=== PATIENT | male | born 1985 | race Caucasian/White ===

== ENCOUNTER 2016-10-10 08:40 | Emergency (ER) | payer OTHER ==
[2016-10-10 08:45] VITALS: BP 129/69; PULSE 55; TEMP 97.7; BMI 20.9
[2016-10-10] MEDS ORDERED: IBUPROFEN 600 MG TABLET (FP) PO ONE ×2 (09:22→09:24)
--- NOTE | 2016-10-10 09:53 | PDOC ---
History of Present Illness - General Chief Complaint: Back Pain Stated Complaint: BACK PAIN Time Seen by Provider: 10/10/16 08:48 History Source: Patient Exam Limitations: No Limitations, Language Barrier (Ronald full time staff interpreter [id number]) - History of Present Illness Initial Comments: 10/10/16 09:49 CHIEF COMPLAINT: Upper back pain HISTORY OF PRESENT ILLNESS: 30-year-old male, patient reports yesterday was lifting heavy plants started to have pain and upper back between the shoulder blades, went home and arms felt weak did not attempt to take any medication reports that his rubbed an appointment on his upper back which helped him feel better to the ER for assessment, Nonradiating pain, no neurosensory deficits, no bowel or bladder difficulty incontinence or urinary retention, no saddle anesthesia, no footdrop. No history of IVDU or history of cancer. Denies any respiratory difficulty no shortness of breath. REVIEW OF SYSTEMS: GENERAL: Afebrile, denies any weakness RESPIRATORY: No cough, wheezing, or hemoptysis. CARDIAC: No chest pain or shortness of breath MUSCULOSKELETAL: Pain to mid upper thoracic. No point tenderness. Pain to bilateral shoulders. SKIN : No erythema, no bruising, no deformity. GI/: Denies any abdominal pain, no urinary difficulty, incontinence or urinary retention. RECTAL: Denies any difficulty this A.m. NEUROLOGICAL: Denies any numbness or tingling. No neurosensory deficits. PHYSICAL EXAM: GENERAL: The patient is awake, alert, and fully oriented, in no acute distress. RESPIRATORY: Lungs clear bilaterally, no rhonchi wheezes or crackles CARDIAC: S1-S2 audible, no murmur rub or gallop MUSCULOSKELETAL: Pain to mid thoracic on palpation, nonradiating, no tingling or sensory deficit. Less than 2 second cap refill, +4 popliteal and pedal pulses. No step off. GI/: Abdomen soft, nontender, nondistended. No rebound tenderness. No masses palpable. MUSCULOSKELETAL: Normal reflexive and no deficits to sensation or strength. RECTAL: Deferred patient with no neurological findings SKIN: Warm, Dry, normal turgor, no erythema, no edema no bruising. 10/10/16 09:52 Past History - Past Medical History Allergies/Adverse Reactions: Allergies Allergy/AdvReac Type Severity Reaction Status Date / Time No Known Allergies Allergy Verified 10/10/16 08:45 Home Medications: Ambulatory Orders Naproxen [Naprosyn -] 500 mg PO BID #14 tablet 10/10/16 Other medical history: PATIENT DENIES MEDICAL HISTORY - Psycho/Social/Smoking Cessation Hx Suicidal Ideation: No Smoking History: Never smoked Hx Alcohol Use: No Drug/Substance Use Hx: No Trauma Specific PMHX - Complaint Specific PMHX Arthritis: No Back Injury: No Neck Injury: No Hx Sacro Iliac Joint Dysfunction: No *Physical Exam - Vital Signs Last Vital Signs Temp Pulse Resp BP Pulse Ox 97.7 F 55 L 16 129/69 100 10/10/16 08:43 10/10/16 08:43 10/10/16 08:43 10/10/16 08:43 10/10/16 08:43 ED Treatment Course - RADIOLOGY Radiology Studies Ordered: Category Date Time Status SPINE-THORACIC [RAD] Stat Radiology 10/10/16 09:22 Taken - Medications Given in the ED: ED Medications Discontinued Medications Generic Name Dose Route Start Last Admin Trade Name Angelq PRN Reason Stop Dose Admin Ibuprofen 600 mg 10/10/16 09:22 10/10/16 09:25 Motrin - PO 10/10/16 09:23 600 mg ONCE ONE Administration Medical Decision Making - Medical Decision Making 10/10/16 09:52 A/P: Patient with upper thoracic pain, pain to bilateral shoulders, most likely musculoskeletal in nature however patient with minor spinal point tenderness to mid thoracic area will send for x-rays, Motrin 600 by mouth times one refused Toradol. Patient denies any shortness of breath, no numbness or tingling, no neurosensory deficits. 10/10/16 13:15 X-ray is negative for acute fracture or injury, minor levoscoliosis patient states he feels better after the Motrin will DC patient home on Naprosyn follow- up with PMD in no heavy lifting. I discussed the physical exam findings, ancillary test results and final diagnoses with the patient. I answered all of the patient's questions. The patient was satisfied with the care received and felt comfortable with the discharge plan and treatment plan. The patient will call to arrange follow-up and will return to the Emergency Department with any new, persistent or worsening symptoms. *DC/Admit/Observation/Transfer Diagnosis at time of Disposition: Thoracic back pain Qualifiers: Chronicity: acute Back pain laterality: bilateral Qualified Code(s): M54.6 - Pain in thoracic spine - Discharge Dispostion Disposition: HOME Condition at time of disposition: Good Admit: No - Prescriptions Prescriptions: Naproxen [Naprosyn -] 500 mg PO BID #14 tablet - Referrals Referrals: Rubens Calvert MD [Primary Care Provider] - - Patient Instructions Additional Instructions: No heavy lifting. Medication as prescribed for pain Return to the ER if any increased pain, numbness tinging or other concerns. - Post Discharge Activity Work/School Note: Back to Work
== END 2016-10-10 11:06 | disposition home or self-care (01) ==
LOC: JERFT 08:40
DX: M54.6 Pain in thoracic spine (principal)
CPT/HCPCS: 72070-TC; 99281-25

== ENCOUNTER 2017-01-27 12:15 | Emergency (ER) | payer OTHER ==
[2017-01-27 12:25] VITALS: BP 125/59; PULSE 75; TEMP 98.2; BMI 20.6
[2017-01-27] MEDS ORDERED: IBUPROFEN 400 MG TABLET (FP) PO ONE ×2 (13:26→13:32)
--- NOTE | 2017-01-27 13:31 | PDOC ---
History of Present Illness - General Chief Complaint: Pain Stated Complaint: LT HAND PAIN Time Seen by Provider: 01/27/17 13:08 History Source: Patient - History of Present Illness Occurred: reports: yesterday Severity: reports: severe Upper Extremity Pain Location: left: thumb Method of Injury: reports: other Past History - Past Medical History Allergies/Adverse Reactions: Allergies Allergy/AdvReac Type Severity Reaction Status Date / Time No Known Allergies Allergy Verified 01/27/17 12:22 Home Medications: Ambulatory Orders NK [No Known Home Medication] 01/27/17 Other medical history: NONE - Suicide/Smoking/Psychosocial Hx Smoking History: Never smoked Information on smoking cessation initiated: No Hx Alcohol Use: No Drug/Substance Use Hx: No Review of Systems - Review of Systems Musculoskeletal: Yes: Joint Pain, Joint Swelling *Physical Exam - Vital Signs Last Vital Signs Temp Pulse Resp BP Pulse Ox 98.2 F 75 18 125/59 100 01/27/17 12:23 01/27/17 12:23 01/27/17 12:23 01/27/17 12:23 01/27/17 12:23 - Physical Exam General Appearance: Yes: Appropriately Dressed. No: Apparent Distress HEENT: positive: Normal Voice Neck: positive: Supple Respiratory/Chest: negative: Respiratory Distress Extremity: positive: Other (significant swelling/fullness to thenar eminence w/ LROM of thumb, c/f possible dislocation, NVI) Integumentary: positive: Dry, Warm Neurologic: positive: Fully Oriented, Alert, Normal Mood/Affect ED Treatment Course - RADIOLOGY Radiology Studies Ordered: Category Date Time Status HAND- LEFT [RAD] Stat Radiology 01/27/17 13:26 Ordered Medical Decision Making - Medical Decision Making 01/27/17 13:29 31-year-old male, no significant history, presents with left thumb pain and swelling status post injury. Patient states yesterday while at work and plugging a cable into a battery, that thumb "snapped back". Has been having pain since See exam ?thumb dislocation -pain control -XR 01/27/17 13:44 XR neg for fracture or dislocation. Will discharge with otc pain meds as needed and instructions to purchase thumb splint for comfort. Hand f/u given 01/27/17 13:58 *DC/Admit/Observation/Transfer Diagnosis at time of Disposition: Thumb sprain Qualifiers: Encounter type: initial encounter Sprain of finger site: interphalangeal joint Laterality: left Qualified Code(s): S63.622A - Sprain of interphalangeal joint of left thumb, initial encounter - Discharge Dispostion Disposition: HOME Condition at time of disposition: Good - Referrals Referrals: Rubens Calvert MD [Primary Care Provider] - Mann Marquez MD [Staff Physician] - - Patient Instructions Printed Discharge Instructions: Finger Sprain Additional Instructions: Your xray was negative for fracture or dislocation. Use thumb splint for comfort and take motrin for pain as needed Follow up with Dr Marquez of orthopedics in 1-2 weeks - Post Discharge Activity Work/School Note: Back to Work
== END 2017-01-27 14:04 | disposition home or self-care (01) ==
LOC: JERFT 12:15
DX: S63.622A Sprain of interphalangeal joint of left thumb, initial encounter (principal); X50.1XXA Overexertion from prolonged static or awkward postures, initial encounter; Y93.89 Activity, other specified; Y92.69 Other specified industrial and construction area as the place of occurrence of the external cause; Y99.0 Civilian activity done for income or pay
CPT/HCPCS: 73130-TC-LT; 99281-25

== ENCOUNTER 2018-05-02 18:00 | Emergency (ER) | payer OTHER ==
[2018-05-02 18:06] VITALS: BP 132/75; PULSE 112; TEMP 99.7; BMI 22.3
--- NOTE | 2018-05-02 18:43 | PDOC ---
History of Present Illness - General Chief Complaint: Sore Throat Stated Complaint: PAIN,ALLERGIES Time Seen by Provider: 05/02/18 18:39 - History of Present Illness Initial Comments: 05/02/18 18:42 32-year-old male without comorbidities presents for evaluation of fever and body aches 2 days. He is on a course of amoxicillin for throat infection Past History - Past Medical History Allergies/Adverse Reactions: Allergies Allergy/AdvReac Type Severity Reaction Status Date / Time No Known Allergies Allergy Verified 05/02/18 18:02 Home Medications: Ambulatory Orders Oseltamivir Phosphate [Tamiflu -] 75 mg PO BID #10 capsule 05/02/18 COPD: No - Suicide/Smoking/Psychosocial Hx Smoking History: Never smoked Hx Alcohol Use: No Drug/Substance Use Hx: No Review of Systems - Review of Systems Constitutional: Yes: Chills, Fever, Malaise, Night Sweats, Weakness HEENTM: Yes: Nose Congestion Musculoskeletal: Yes: Muscle Pain *Physical Exam - Vital Signs Last Vital Signs Temp Pulse Resp BP Pulse Ox 99.7 F H 112 H 18 132/75 05/02/18 18:02 05/02/18 18:02 05/02/18 18:02 05/02/18 18:02 - Physical Exam Comments: 05/02/18 18:43 HEAD: NC/AT EYES: Conjuntiva clear Ears: Canals and TM's normal NOSE: No d/c THROAT: Moist mucous membrances, oral pharanx clear, uvula midline NECK: Supple without adenopathy CARDIAC: S1 S2 LUNGS: CTA Full and Equal breath sounds ABDOMEN: Soft NT ND MS: Full ROM in all joints without edema NEUROLOGIC: No gross sensory or motor deficits, NVID SKIN: Normal color and temperature no lesions or rashes Moderate Sedation - Procedure Monitoring Vital Signs: Procedure Monitoring Vital Signs Temperature 99.7 F H 05/02/18 18:02 Pulse Rate 112 H 05/02/18 18:02 Respiratory Rate 18 05/02/18 18:02 Blood Pressure 132/75 05/02/18 18:02 O2 Sat by Pulse Oximetry (%) *DC/Admit/Observation/Transfer Diagnosis at time of Disposition: Influenza - Discharge Dispostion Disposition: HOME Condition at time of disposition: Stable Decision to Admit order: No - Prescriptions Prescriptions: Oseltamivir Phosphate [Tamiflu -] 75 mg PO BID #10 capsule - Referrals Referrals: Rubens Calvert MD [Primary Care Provider] - - Patient Instructions Printed Discharge Instructions: Influenza, DI for Influenza -- Adult Additional Instructions: Please take Tamiflu as directed and Tylenol and Motrin for pain and fever as directed. Return to the emergency room should symptoms worsen or go unresolved and follow up with her primary care physician in 2-3 days for further evaluation and treatment options. - Post Discharge Activity
== END 2018-05-02 19:29 | disposition home or self-care (01) ==
LOC: JERFT 18:00
DX: J10.1 Influenza due to other identified influenza virus with other respiratory manifestations (principal)
CPT/HCPCS: 87804; 99281-25

== ENCOUNTER 2018-08-08 13:05 | Emergency (ER) | payer OTHER ==
[2018-08-08 13:11] VITALS: BP 127/74; PULSE 56; TEMP 97.6; BMI 22.3
[2018-08-08 13:48] LABS: PH,URINE 7.5 (5.0-8.0); URINE APPEARANCE CLEAR; URINE BILIRUBIN NEGATIVE (NEGATIVE); URINE COLOR YELLOW; URINE GLUCOSE (UA) NEGATIVE (NEGATIVE); URINE KETONE NEGATIVE (NEGATIVE); URINE LEUK ESTERASE NEGATIVE (NEGATIVE); URINE NITRITE NEGATIVE (NEGATIVE); URINE PROTEIN NEGATIVE (NEGATIVE); URINE UROBILINOGEN 0.2 mg/dL (0.2-1.0)
--- NOTE | 2018-08-08 15:37 | PDOC ---
History of Present Illness - General Chief Complaint: Urinary Problem Stated Complaint: URINE PROBLEM Time Seen by Provider: 08/08/18 13:33 History Source: Patient Exam Limitations: No Limitations Past History - Travel Traveled outside of the country in the last 30 days: No Close contact w/someone who was outside of country & ill: No - Past Medical History Allergies/Adverse Reactions: Allergies Allergy/AdvReac Type Severity Reaction Status Date / Time No Known Allergies Allergy Verified 08/08/18 13:11 Home Medications: Ambulatory Orders Phenazopyridine HCl [Pyridium -] 100 mg PO TID #9 tablet 08/08/18 COPD: No - Suicide/Smoking/Psychosocial Hx Smoking History: Never smoked Hx Alcohol Use: No Drug/Substance Use Hx: No Review of Systems - Review of Systems Able to Perform ROS?: Yes Comments:: 08/09/18 15:36 CONSTITUTIONAL: Absent: fever, chills, diaphoresis, generalized weakness, malaise, loss of appetite GASTROINTESTINAL: Absent: abdominal pain, abdominal distension, nausea, vomiting, diarrhea, constipation, melena, hematochezia GENITOURINARY: Present: frequency Absent: dysuria, urgency, hesitancy, hematuria, flank pain, genital pain MUSCULOSKELETAL: Absent: myalgia, arthralgia, joint swelling SKIN: Absent: rash, itching, pallor HEMATOLOGIC/IMMUNOLOGIC: Absent: easy bleeding, easy bruising, lymphadenopathy, frequent infections ENDOCRINE: Absent: unexplained weight gain, unexplained weight loss, heat intolerance, cold intolerance NEUROLOGIC: Absent: headache, focal weakness or paresthesias, dizziness, unsteady gait, seizure, mental status changes, bladder or bowel incontinence PSYCHIATRIC: Absent: anxiety, depression, suicidal or homicidal ideation, hallucinations. *Physical Exam - Vital Signs Last Vital Signs Temp Pulse Resp BP Pulse Ox 97.6 F 56 L 18 127/74 99 08/08/18 13:07 08/08/18 13:07 08/08/18 13:07 08/08/18 13:07 08/08/18 13:07 - Physical Exam Comments: 08/08/18 15:38 GENERAL: Well developed, well nourished. Awake and alert. No acute distress. NECK: Supple. Full ROM. No JVD. Carotid pulses 2+ and symmetric, without bruits. No thyromegaly. No lymphadenopathy. ABDOMINAL: Discomfort to the suprapubic area. Soft. Non-tender. Non-distended. No rebound or guarding. No organomegaly. Normoactive bowel sounds. MUSCULOSKELETAL Normal range of motion at all joints. No bony deformities or tenderness. No CVA tenderness. EXTREMITIES: No cyanosis. No clubbing. No edema. No calf tenderness. SKIN: Warm and dry. Normal capillary refill. No rashes. No jaundice. NEUROLOGICAL: Alert, awake, appropriate. Cranial nerves 2-12 intact. No deficits to light touch and temperature in face, upper extremities and lower extremities. No motor deficits in the in face, upper extremities and lower extremities. Normoreflexic in the upper and lower extremities. Normal speech. Toes are down- going bilaterally. Gait is normal without ataxia. PSYCHIATRIC: Cooperative. Good eye contact. Appropriate mood and affect. ED Treatment Course - ADDITIONAL ORDERS Additional order review: Laboratory Results 08/08/18 13:40 Urine Color Yellow Urine Appearance Clear Urine pH 7.5 Ur Specific [place] 1.004 L Urine Protein Negative Urine Glucose (UA) Negative Urine Ketones Negative Urine Blood Negative Urine Nitrite Negative Urine Bilirubin Negative Urine Urobilinogen 0.2 Ur Leukocyte Esterase Negative Medical Decision Making - Medical Decision Making 08/08/18 15:41 the patient is a 32-year-old male with no past medical history who presents to the emergency department today for urinary frequency. He states that he has been getting up the last couple of nights every 2 hours to urinate. Denies nausea, vomiting and abdominal pain. He is sexually active with his . Denies testicular pain and penile drainage. A/P: Urinary frequency. Discomfort to the suprapubic region on exam. Patient denies penile drainage. Urinalysis and culture ordered. No evidence of urinary tract infection at this time. Possible cystitis. Pyridium sent to patient's pharmacy. Patient instructed to follow up with his primary care doctor. Explained that he may need a prostate exam as well. Discharge home I discussed the physical exam findings, ancillary test results and final diagnoses with the patient. I answered all of the patient's questions. The patient was satisfied with the care received and felt comfortable with the discharge plan and treatment plan. The Patient agrees to follow up with the primary care physician/specialist within 24-72 hours. Return precautions were given. *DC/Admit/Observation/Transfer Diagnosis at time of Disposition: Urinary frequency - Discharge Dispostion Disposition: HOME Condition at time of disposition: Stable Decision to Admit order: No - Prescriptions Prescriptions: Phenazopyridine HCl [Pyridium -] 100 mg PO TID #9 tablet - Referrals Referrals: Danie Araiza PA [Primary Care Provider] - - Patient Instructions Printed Discharge Instructions: DI for Dysuria -- Adult Additional Instructions: Your urine test was negative for infection Drink plenty of fluids You may take the pyridium with meals three times a day Follow up with your primary care doctor this week Return to the ED for any new or worsening symptoms Lee anlisis de orina fue negativo para la infeccin Beber mucho lquido Puede edwar el piridio con las comidas maribeth veces al da. Yaa un seguimiento con lee mdico de atencin primaria esta semana. Regrese a la sara de emergencias para cualquier sntoma nuevo o que empeore. - Post Discharge Activity Forms/Work/School Notes: Back to Work
== END 2018-08-08 15:49 | disposition home or self-care (01) ==
LOC: JERFT 13:05
DX: R35.0 Frequency of micturition (principal)
CPT/HCPCS: 36415; 81003; 87086; 87491; 87591; 99281-25

== ENCOUNTER 2018-08-09 19:31 | Emergency (ER) | payer OTHER ==
--- NOTE | 2018-08-09 19:51 | PDOC ---
Rapid Medical Evaluation Time Seen by Provider: 08/09/18 19:47 Medical Evaluation: Allergies Allergy/AdvReac Type Severity Reaction Status Date / Time No Known Allergies Allergy Verified 08/08/18 13:11 08/09/18 19:50 I have performed a brief in-person evaluation of this patient The patient present with a chief complaint of: nausea after taking pyridium. Denies pain or burning with urination Pertinent physical exam findings: NAD even and unlabored breathing I have ordered the following: The patient will proceed to the ED for further evaluation. Discharge Disposition - Diagnosis Nausea - Referrals - Patient Instructions - Post Discharge Activity
[2018-08-09 19:53] VITALS: BP 147/83; PULSE 86; TEMP 97.9; BMI 23.3
--- NOTE | 2018-08-09 20:58 | PDOC ---
History of Present Illness - General Chief Complaint: Nausea Stated Complaint: FREQUENCY URINATION Time Seen by Provider: 08/09/18 19:47 - History of Present Illness Initial Comments: 08/09/18 20:56 32-year-old male without comorbidities seen a few days ago for dysuria he is taking Pyridium which helped his pain he still has frequency now intermittent dizziness after Pyridium Past History - Past Medical History Allergies/Adverse Reactions: Allergies Allergy/AdvReac Type Severity Reaction Status Date / Time No Known Allergies Allergy Verified 08/08/18 13:11 Home Medications: Ambulatory Orders Phenazopyridine HCl [Pyridium -] 100 mg PO TID #9 tablet 08/08/18 COPD: No - Suicide/Smoking/Psychosocial Hx Smoking History: Unknown if ever smoked Hx Alcohol Use: No Drug/Substance Use Hx: No Review of Systems - Review of Systems : Yes: Frequency Neurological: Yes: Dizziness *Physical Exam - Vital Signs Last Vital Signs Temp Pulse Resp BP Pulse Ox 97.9 F 86 20 147/83 100 08/09/18 19:47 08/09/18 19:47 08/09/18 19:47 08/09/18 19:47 08/09/18 19:47 - Physical Exam Comments: 08/09/18 20:57 HEAD: NC/AT EYES: Conjuntiva clear NOSE: No d/c LUNGS: No distress ABDOMEN: Soft NT ND no CVAT MS: Full ROM in all joints without edema NEUROLOGIC: No gross sensory or motor deficits, NVID SKIN: Normal color and temperature no lesions or rashes Medical Decision Making - Medical Decision Making 08/09/18 20:57 I have advised the patient to discontinue the Pyridium if it causes dizziness. He will follow up with urology within the next 1-2 days for further evaluation of urinary frequency. *DC/Admit/Observation/Transfer Diagnosis at time of Disposition: Nausea, Urinary frequency - Discharge Dispostion Disposition: HOME Condition at time of disposition: Stable Decision to Admit order: No - Referrals Referrals: Danie Araiza PA [Primary Care Provider] - Alberto Etienne MD [Staff Physician] - - Patient Instructions Additional Instructions: Discontinue the use of the Pyridium if it makes her dizzy. Return to the emergency room for worsening symptoms. Please follow-up with urology in 1-2 days for further evaluation and treatment options. - Post Discharge Activity
== END 2018-08-09 21:10 | disposition home or self-care (01) ==
LOC: JERFT 19:31
DX: R35.0 Frequency of micturition (principal); R11.0 Nausea
CPT/HCPCS: 99281-25

== ENCOUNTER 2018-10-27 18:51 | Emergency (ER) | payer OTHER ==
--- NOTE | 2018-10-27 18:58 | PDOC ---
Rapid Medical Evaluation Chief Complaint: Sore Throat Time Seen by Provider: 10/27/18 18:54 Medical Evaluation: Allergies Allergy/AdvReac Type Severity Reaction Status Date / Time No Known Allergies Allergy Verified 08/08/18 13:11 10/27/18 18:55 I have performed a brief in-person evaluation of this patient. The patient presents with a chief complaint of: sorethroat with nasal drainage x 3 days. worse at night. No other family ill Pertinent physical exam findings: No fever. throat no redness / exudate I have ordered the following: nothing The patient will proceed to the ED for further evaluation. Discharge Disposition - Diagnosis URI (upper respiratory infection) - Referrals - Patient Instructions - Post Discharge Activity
[2018-10-27 19:00] VITALS: BP 115/63; PULSE 82; TEMP 98.5; BMI 24.1
--- NOTE | 2018-10-27 19:54 | PDOC ---
History of Present Illness - General Chief Complaint: Sore Throat Stated Complaint: SORE THROAT Time Seen by Provider: 10/27/18 18:54 - History of Present Illness Initial Comments: 10/27/18 19:53 32-year-old male without comorbidities presents for evaluation of abdominal pain and sore throat 3 days no systemic symptoms. Past History - Past Medical History Allergies/Adverse Reactions: Allergies Allergy/AdvReac Type Severity Reaction Status Date / Time No Known Allergies Allergy Verified 08/08/18 13:11 Home Medications: Ambulatory Orders Phenazopyridine HCl [Pyridium -] 100 mg PO TID #9 tablet 08/08/18 COPD: No - Suicide/Smoking/Psychosocial Hx Smoking History: Never smoked Have you smoked in the past 12 months: No Information on smoking cessation initiated: No Hx Alcohol Use: No Drug/Substance Use Hx: No Review of Systems - Review of Systems Constitutional: No: Fever *Physical Exam - Vital Signs Last Vital Signs Temp Pulse Resp BP Pulse Ox 98.5 F 82 18 115/63 99 10/27/18 18:56 10/27/18 18:56 10/27/18 18:56 10/27/18 18:56 10/27/18 18:56 - Physical Exam Comments: 10/27/18 19:53 HEAD: NC/AT EYES: Conjuntiva clear Ears: Canals and TM's normal NOSE: No d/c THROAT: Moist mucous membrances, oral pharanx clear, uvula midline NECK: Supple without adenopathy CARDIAC: S1 S2 LUNGS: CTA Full and Equal breath sounds ABDOMEN: Left-sided abdominal tenderness without rebound or guarding MS: Full ROM in all joints without edema NEUROLOGIC: No gross sensory or motor deficits, NVID SKIN: Normal color and temperature no lesions or rashes Medical Decision Making - Medical Decision Making 10/27/18 19:53 belly labs and CAT scan ordered I will move patient over to main emergency room. *DC/Admit/Observation/Transfer Diagnosis at time of Disposition: Abdominal pain Diagnosis at time of Disposition: (Ruled Out): URI (upper respiratory infection) - Discharge Dispostion Condition at time of disposition: Stable - Referrals Referrals: Quang Ramirez MD [Primary Care Provider] - - Patient Instructions - Post Discharge Activity
[2018-10-27 20:21] LABS: BASO % 0.9 % (0-2.0); EOS % 1.3 % (0-4.5); HEMATOCRIT 40.7 % (35.4-49); HEMOGLOBIN 14.1 GM/dL (11.7-16.9); LYMPH % 25.1 % (8-40); MCH 31.8 pg (25.7-33.7); MCHC 34.6 g/dl (32.0-35.9); MEAN PLT VOLUME 8.9 fl (7.5-11.1); MONO % 12.3 % (3.8-10.2); NEUT % 60.4 % (42.8-82.8); PLATELET COUNT 249 K/MM3 (134-434); RBC 4.42 M/mm3 (4.00-5.60); RDW 11.7 % (11.9-15.9)
--- NOTE | 2018-10-27 20:44 | PDOC ---
*Physical Exam - Vital Signs Last Vital Signs Temp Pulse Resp BP Pulse Ox 98.5 F 82 18 115/63 99 10/27/18 18:56 10/27/18 18:56 10/27/18 18:56 10/27/18 18:56 10/27/18 18:56 - Physical Exam General Appearance: Yes: Nourished, Appropriately Dressed. No: Apparent Distress HEENT: positive: SHANE, Normal ENT Inspection, Normal Voice Neck: positive: Supple Respiratory/Chest: positive: Lungs Clear, Normal Breath Sounds. negative: Chest Tender, Respiratory Distress, Accessory Muscle Use Cardiovascular: positive: Regular Rhythm, Regular Rate. negative: Murmur Gastrointestinal/Abdominal: positive: Normal Bowel Sounds, Tender (mild TTP to epigastric and suprapbic region), Flat, Soft. negative: Organomegaly, Distended , Guarding, Rebound, Hernia, Hepatomegaly, Spleenomegaly Male Genitalia: positive: normal genitalia. negative: testicular tenderness, testicular mass, CVAT Musculoskeletal: positive: Normal Inspection Extremity: positive: Normal Inspection Integumentary: positive: Normal Color Neurologic: positive: Fully Oriented, Alert, Normal Mood/Affect, Normal Response ED Treatment Course - LABORATORY CBC & Chemistry Diagram: 10/27/18 19:58 10/27/18 19:58 - ADDITIONAL ORDERS Additional order review: 10/27/18 19:58 RBC 4.42 MCV 92.0 MCHC 34.6 RDW 11.7 L MPV 8.9 Neutrophils % 60.4 Lymphocytes % 25.1 Monocytes % 12.3 H Eosinophils % 1.3 Basophils % 0.9 Medical Decision Making - Medical Decision Making 10/27/18 20:42 I assumed care of this 32-year-old male with no significant past medical history present with complaint of sore throat and epigastric abdominal pain for 3 days. Patient denies nausea, vomiting, diarrhea or constipation. Patient denies fever or chills. Patient denies any other symptoms. Patient seen in fast track as signed out to me for follow-up care of abdominal pain. CBC, CMP and lipase lab ordered. Abdominal CT ordered from fast-track. Rapid strep ordered to rule out strep pharyngitis. Treat based on lab and imaging results 10/27/18 21:17 rapid strep negative. CBC, CMP and lipase labs unremarkable. Patient pending abd /pelvis CT 06/19/19 23:[address] w/o acute findings. Patient symptoms likely viral pharyngitis ith acid reflux as pt report burning in epigastric. Patient will be discharge on protonix and maalox for GERD with medrol-fabian with help with pharyngitis with PCP f/u. Patient stable for discharge *DC/Admit/Observation/Transfer Diagnosis at time of Disposition: Abdominal pain Qualifiers: Abdominal location: epigastric Qualified Code(s): R10.13 - Epigastric pain Pharyngitis Qualifiers: Pharyngitis/tonsillitis etiology: unspecified etiology Qualified Code(s): J02.9 - Acute pharyngitis, unspecified - Discharge Dispostion Disposition: HOME Condition at time of disposition: Stable Decision to Admit order: No - Prescriptions Prescriptions: Mag Hydrox/Aluminum Hyd/Simeth [Maalox Advanced Suspension] 30 ml PO Q8H PRN # 160 ml PRN Reason: abdominal discomfort Methylprednisolone [Medrol Dose Fabian] 4 mg PO ASDIR #21 tablet Pantoprazole Sodium [Protonix] 40 mg PO DAILY #10 tablet.dr - Referrals Referrals: Bijan Junior MD [Staff Physician] - - Patient Instructions Printed Discharge Instructions: DI for Gastroesophageal Reflux Disease (GERD), DI for Gastritis Additional Instructions: Your labs and CAT scan is normal. Your strep is negative. Take medications as prescribed. Increase fluid intake. Follow-up with referred GI if no improvement in 3 days - Post Discharge Activity
[2018-10-27 20:53] LABS: ALBUMIN 4.2 g/dl (3.4-5.0); BILIRUBIN,TOTAL 0.4 mg/dL (0.2-1); BLOOD UREA NITROGEN 11.9 mg/dL (7-18); CALCIUM 9.3 mg/dL (8.5-10.1); CREATININE 0.9 mg/dL (0.55-1.3); POTASSIUM 4.5 mmol/L (3.5-5.1); TOT PROT 7.5 g/dl (6.4-8.2)
[2018-10-27] MEDS ORDERED: MAG HYDROX/AL HYDROX/SIMETH 30 ML UNIT-DOSE CUP PO ONE (21:18)
[2018-10-27] MEDS ORDERED: MAG HYDROX/AL HYDROX/SIMETH 30 ML UNIT-DOSE CUP ONE (21:35)
== END 2018-10-27 23:02 | disposition home or self-care (01) ==
LOC: JERFT 18:51 → JER 18:51
DX: J02.9 Acute pharyngitis, unspecified (principal); R10.84 Generalized abdominal pain
CPT/HCPCS: 36415; 74177-TC; 80053; 83690; 85025; 87070; 87880; 99282-25

== ENCOUNTER 2018-11-19 19:13 | Emergency (ER) | payer OTHER ==
[2018-11-19 19:21] VITALS: BP 123/77; PULSE 68; TEMP 98.3; BMI 60.5
[2018-11-19] MEDS ORDERED: FAMOTIDINE 20 MG/50 ML IVPB 20 MG/50 ML MG IVPB ONE ×2 (21:09→22:27)
[2018-11-19] MEDS ORDERED: SODIUM CHLORIDE 1,000 ML IV STA (21:09)
[2018-11-19] MEDS: MAG HYDROX/AL HYDROX/SIMETH 30 ML UNIT-DOSE CUP PO ONE ×2 (22:00→22:46)
[2018-11-19 22:18] LABS: BASO % 1.3 % (0-2.0); HEMATOCRIT 40.4 % (35.4-49); HEMOGLOBIN 13.7 GM/dL (11.7-16.9); LYMPH % 46.4 % (8-40); MCH 31.2 pg (25.7-33.7); MEAN CELL VOLUME 91.8 fl (80-96); MEAN PLT VOLUME 9.9 fl (7.5-11.1); NEUT % 41.3 % (42.8-82.8); PLATELET COUNT 178 K/MM3 (134-434); RBC 4.41 M/mm3 (4.00-5.60); RDW 11.9 % (11.9-15.9); WHITE BLOOD COUNT 5.5 K/mm3 (4.0-10.0)
--- NOTE | 2018-11-19 22:24 | PDOC ---
History of Present Illness - General Chief Complaint: Pain Stated Complaint: ABD PAIN/DIARRHEA Time Seen by Provider: 11/19/18 20:44 History Source: Patient Exam Limitations: Language Barrier (lao ID#[id number]) Past History - Past Medical History Allergies/Adverse Reactions: Allergies Allergy/AdvReac Type Severity Reaction Status Date / Time No Known Allergies Allergy Verified 08/08/18 13:11 Home Medications: Ambulatory Orders Phenazopyridine HCl [Pyridium -] 100 mg PO TID #9 tablet 08/08/18 Mag Hydrox/Aluminum Hyd/Simeth [Maalox Advanced Suspension] 30 ml PO Q8H PRN # 160 ml 10/27/18 Methylprednisolone [Medrol Dose Fabian] 4 mg PO ASDIR #21 tablet 10/27/18 Pantoprazole Sodium [Protonix] 40 mg PO DAILY #10 tablet. 10/27/18 COPD: No - Suicide/Smoking/Psychosocial Hx Smoking History: Never smoked Have you smoked in the past 12 months: No Hx Alcohol Use: No Drug/Substance Use Hx: No *Physical Exam - Vital Signs Last Vital Signs Temp Pulse Resp BP Pulse Ox 98.3 F 68 20 123/77 100 11/19/18 19:16 11/19/18 19:16 11/19/18 19:16 11/19/18 19:16 11/19/18 19:16 - Physical Exam General Appearance: No: Apparent Distress Respiratory/Chest: positive: Lungs Clear, Normal Breath Sounds. negative: Respiratory Distress Cardiovascular: positive: Regular Rhythm, Regular Rate, S1, S2. negative: Murmur Gastrointestinal/Abdominal: positive: Normal Bowel Sounds, Tender (mild epigastric), Soft. negative: Distended, Guarding, Rebound Neurologic: positive: Alert, Normal Mood/Affect ED Treatment Course - LABORATORY CBC & Chemistry Diagram: 11/19/18 22:00 11/19/18 22:00 Medical Decision Making - Medical Decision Making 33 y/o M with no sig pmh, no prior abdominal surgeries presents with epigastric pain x 3 days along with watery diarrhea. Pain is worse with food. Is taking Protonix without relief of symptoms. Denies fever, sob, cp, n/v, urinary complaints, recent travel/camping/hiking, use of antibiotics, sick contacts, possible bad food exposure. Patient was seen last month for epigastric pain as well, was discharged on Protonix and had CT A/P which is normal. Patient states this pain is different from prior. Possible gastroenteritis vs gastritis? Labs pending Given Pepcid, Maalox, IVF Will reassess 11/19/18 22:23 Lab work unremarkable Patient feeling better on reassesment Stable for dc 11/19/18 23:09 *DC/Admit/Observation/Transfer Diagnosis at time of Disposition: Gastroenteritis - Discharge Dispostion Disposition: HOME Condition at time of disposition: Stable Decision to Admit order: No - Referrals Referrals: Quang Ramirez MD [Primary Care Provider] - 2 Days - Patient Instructions Printed Discharge Instructions: DI for Viral Gastroenteritis -- Adult Additional Instructions: Thank you for choosing [facility]. It was a pleasure taking care of you. Your labs were unremarkable Likely this is viral bug Drink plenty of water - at least 2 L daily Eat light food - bananas, rice, applesauce, toast, plain yogurt until feeling better Follow-up with your doctor in 2 days Return to the Emergency Department if your symptoms worsen or persist or have other concerning symptoms. Trino por elegir el Hospital [facility]. Fue un placer cuidar de ti. Tus laboratorios no fueron notables Probablemente jane sea un virus viral. Diamond papo agua - por lo menos 2 L diariamente Coma alimentos ligeros: pltanos, arroz, compota de manzana, tostadas, yogur natural hasta que se sienta mejor. Seguimiento con lee mdico en 2 stewart. Regrese al Departamento de Emergencias si surekha sntomas empeoran o persisten o si tiene otros sntomas relacionados. Print Language: IRISH - Post Discharge Activity
[2018-11-19] MEDS ORDERED: MAG HYDROX/AL HYDROX/SIMETH 30 ML UNIT-DOSE CUP ONE (22:26)
[2018-11-19 22:46] LABS: ALBUMIN 4.2 g/dl (3.4-5.0); BILIRUBIN,TOTAL 1.1 mg/dL (0.2-1); BLOOD UREA NITROGEN 12.7 mg/dL (7-18); CALCIUM 8.7 mg/dL (8.5-10.1); CREATININE 1.1 mg/dL (0.55-1.3); POTASSIUM 4.2 mmol/L (3.5-5.1); TOT PROT 7.1 g/dl (6.4-8.2)
== END 2018-11-19 23:50 | disposition home or self-care (01) ==
LOC: JER 19:13
PROC: 3E0337Z Introduction of Electrolytic and Water Balance Substance into Peripheral Vein, Percutaneous Approach (ICD-10-PCS; principal; 2018-11-19)
PROC: 3E033GC Introduction of Other Therapeutic Substance into Peripheral Vein, Percutaneous Approach (ICD-10-PCS; 2018-11-19)
DX: K52.9 Noninfective gastroenteritis and colitis, unspecified (principal)
CPT/HCPCS: 36415; 80053; 83690; 85025; 96361; 96365; 99282-25; J7030

== ENCOUNTER 2018-11-24 18:36 | Emergency (ER) | payer OTHER ==
[2018-11-24 18:56] VITALS: BMI 21.1
--- NOTE | 2018-11-24 20:31 | PDOC ---
History of Present Illness - General Chief Complaint: Pain, Acute Stated Complaint: ABD PAIN Time Seen by Provider: 11/24/18 18:56 - History of Present Illness Initial Comments: 33yo M with no significant PMH presenting with abdominal pain x 2 weeks. Patient was seen in this ED on 11/19/18 for the same complaint and reports that the pain is the same but has gotten worse. Per chart review, labs were unremarkable. CTAP last month did not indicate acute pathology. He continues to have 8/10 abdominal pain in the periumbilical region described as "gassy" and "like something is moving inside." Patient reports one week of intermittent diarrhea that he describes as watery. No nausea or vomiting. Tolerating po without difficulty. Never had a surgery. Tried to make a GI appointment but it was for the end of December so he decided not to schedule the appointment as he could not wake that long. Patient visited the [facility] from September 17- September 29. No fevers, chills, chest pain, or shortness of breath. PCP: Dr. Quang Ramirez Past History - Past Medical History Allergies/Adverse Reactions: Allergies Allergy/AdvReac Type Severity Reaction Status Date / Time No Known Allergies Allergy Verified 11/19/18 23:27 Home Medications: Ambulatory Orders Phenazopyridine HCl [Pyridium -] 100 mg PO TID #9 tablet 08/08/18 Mag Hydrox/Aluminum Hyd/Simeth [Maalox Advanced Suspension] 30 ml PO Q8H PRN # 160 ml 10/27/18 Methylprednisolone [Medrol Dose Fabian] 4 mg PO ASDIR #21 tablet 10/27/18 Pantoprazole Sodium [Protonix] 40 mg PO DAILY #10 tablet. 10/27/18 Polyethylene Glycol 3350 [Miralax (For Bowel Prep) -] 17 gm PO DAILY #1 bottle 11/24/18 COPD: No Dialysis: No - Immunization History Immunization Up to Date: Yes - Suicide/Smoking/Psychosocial Hx Smoking History: Never smoked Have you smoked in the past 12 months: No Information on smoking cessation initiated: No Hx Alcohol Use: No Drug/Substance Use Hx: No Review of Systems - Review of Systems Comments:: Constitutional: no fever, no chills HEENT: no throat pain, no dysphagia Cardiovascular: no chest pain, no palpitations Respiratory: no cough, no shortness of breath Gastrointestinal: +abdominal pain, +diarrhea Genitourinary: no dysuria, no frequency Musculoskeletal: no myalgia, no arthralgia Skin: no rash, no itching Neurologic: no headache, no weakness *Physical Exam - Vital Signs Last Vital Signs Temp Pulse Resp BP Pulse Ox 98.3 F 64 18 112/80 100 11/24/18 18:54 11/24/18 18:54 11/24/18 18:54 11/24/18 18:54 11/24/18 18:54 - Physical Exam Comments: General: Awake, alert, and fully oriented, in no acute distress Head: No signs of trauma Eyes: EOMI, sclera anicteric ENT: Moist mucus membranes Neck: Normal ROM, supple Lungs: Lungs clear, Normal breath sounds Cardio: Regular rhythm, S1 and S2 present Abdomen: No tenderness to palpation. Patient points to periumbilical region radiating to LLQ as the area of his pain. Soft, nondistended. No guarding, no rebound, no masses. No CVA tenderness bilaterally. Extremities: Normal range of motion, Distal pulses present SKIN: Warm, Dry, normal turgor Neurologic: Cranial nerves II through XII grossly intact. Normal speech Medical Decision Making - Medical Decision Making 33yo M with no significant PMH presenting with abdominal pain x 2 weeks. DDX including but not limited to IBS, IBD, parasite, appendicitis, diverticulitis Per chart review, patient with benign labs five days ago and negative CTAP last month. VSS Dicyclomine 20mg as antispasmodic Maalox Abdominal film 11/24/18 20:31 Abdominal film with significant amount of feces seen, my impression Patient states pain is improved Gassy pain is likely due to fecal buildup with diarrhea passing around High fiber diet recommended Plan to discharge with outpatient miralax *DC/Admit/Observation/Transfer Diagnosis at time of Disposition: Abdominal pain - Discharge Dispostion Disposition: HOME Condition at time of disposition: Stable - Prescriptions Prescriptions: Polyethylene Glycol 3350 [Miralax (For Bowel Prep) -] 17 gm PO DAILY #1 bottle - Referrals Referrals: Quang Ramirez MD [Primary Care Provider] - Bijan Junior MD [Staff Physician] - - Patient Instructions Printed Discharge Instructions: High-Fiber Diet, DI for Abdominal Pain-Adult Additional Instructions: You came into the emergency department for abdominal pain. We collected a urine sample which was negative for infection. An Xray of your abdomen showed lots of stool. A stool softener prescription has been sent to your pharmacy. Drink plenty of fluids Follow-up with a primary care provider this week to discuss this ED visit and to further evaluate your symptoms. Call and make an appointment tomorrow morning. Your workup is not complete until you do so. We have referred you to a GI doctor. Call and make an appointment. Immediate medical attention is required if you develop: worsening pain, high fevers, persistent nausea, vomiting, or any new or concerning symptoms. If you think you are having an emergency, call for emergency medical services or present to the emergency department right away. === Entraste en el servicio de urgencias por dolor abdominal. Recogimos deandre muestra de orina que result negativa para la infeccin. Deandre radiografa de [place] abdomen mostr muchas heces. Se henry enviado deandre receta de ablandador de heces a [place] farmacia. Beber mucho lquido Raquel un seguimiento con un proveedor de atencin primaria esta semana para hablar sobre esta visita al ED y para evaluar ms a fondo surekha sntomas. Llame y raquel deandre matthew maana por la maana. [place] preparacin no est completa hasta que lo raquel. Le hemos referido a un mdico de GI. Llame y raquel deandre matthew. Se requiere atencin mdica inmediata si desarrolla: empeoramiento del dolor, fiebre sienna, nuseas persistentes, vmitos o cualquier sntoma nuevo o relacionado con ellos. Si clem que tiene deandre emergencia, llame para solicitar servicios mdicos de emergencia o presente al departamento de emergencias de inmediato. Print Language: ALBANIAN - Post Discharge Activity
[2018-11-24] MEDS ORDERED: DICYCLOMINE HCL 20 MG TABLET PO ONE (21:07)
[2018-11-24] MEDS ORDERED: DICYCLOMINE HCL 10 MG CAPSULE ONE (21:34)
[2018-11-24] MEDS ORDERED: MAG HYDROX/AL HYDROX/SIMETH -MYLANTA- ORAL SUSPENSION PO ONE (21:39)
[2018-11-24] MEDS ORDERED: MAG HYDROX/AL HYDROX/SIMETH 30 ML UNIT-DOSE CUP ONE (21:42)
[2018-11-24 21:46] LABS: URINE APPEARANCE CLEAR; URINE BILIRUBIN NEGATIVE (NEGATIVE); URINE COLOR YELLOW; URINE GLUCOSE (UA) NEGATIVE (NEGATIVE); URINE KETONE NEGATIVE (NEGATIVE); URINE LEUK ESTERASE NEGATIVE (NEGATIVE); URINE NITRITE NEGATIVE (NEGATIVE); URINE PROTEIN NEGATIVE (NEGATIVE); URINE UROBILINOGEN 0.2 mg/dL (0.2-1.0)
--- NOTE | 2018-11-24 22:19 | PDOC ---
Documentation entered by Julisa Duggan SCRIBE, acting as scribe for Sadia Mcgee DO. Sadia Mcgee DO: This documentation has been prepared by the Olga Lidia olguin Xhesika, SCRIBE, under my direction and personally reviewed by me in its entirety. I confirm that the documentation accurately reflects all work, treatment, procedures, and medical decision making performed by me. Attending Attestation - Resident Resident Name: AnnaSharaMarleny - ED Attending Attestation I have performed the following: I have examined & evaluated the patient, The case was reviewed & discussed with the resident, I agree w/resident's findings & plan, Exceptions are as noted - HPI HPI: 11/24/18 21:44 The patient is a 33 year old male, with a significant PMH of who presents to the emergency department with 2 weeks of abdominal pain. Patient was seen here at [facility] a week ago with similar symptoms, labs were unremarkable and was discharged home. The patient describes the pain as 8/10, gassy sensation that is moving to his LLQ region and is located in his periumbilical region. The patient states he has been endorsing 1 week of intermittent watery diarrhea with his last normal BM was 10 days ago. The patient [facility]. The patient denies chest pain, shortness of breath, headache and dizziness. Denies fever, chills, nausea, vomiting, and constipation. Denies dysuria, frequency, urgency and hematuria. Allergies: NKDA PCP: Quang Small - Physicial Exam PE: 11/24/18 22:20 GENERAL: Awake, alert, and fully oriented, in no acute distress HEAD: No signs of trauma LUNGS: Breath sounds equal, clear to auscultation bilaterally. No wheezes, and no crackles HEART: Regular rate and rhythm, normal S1 and S2, no murmurs, rubs or gallops ABDOMEN: Soft, nontender, normoactive bowel sounds. No guarding, no rebound. No masses EXTREMITIES: Normal range of motion, no edema. No clubbing or cyanosis. No cords, erythema, or tenderness NEUROLOGICAL: Ambulatory with a steady gait. SKIN: Warm, Dry, normal turgor - Medical Decision Making 11/24/18 22:16 I, Dr. Sadia Mcgee, DO, attest that this document has been prepared under my direction and personally reviewed by me in its entirety. I further attest, that it accurately reflects all work, treatment, procedures and medical decision -making performed by me. 11/24/18 22:16 a/p: 33yo male with L sided abd pain -dx with colonic retention a week ago - taking omeprazole -now with 3-4 loose stools per week -no blood in stool -no cp/sob -no urinary complaints -last normal bm was 10 days ago -pt with abd that is soft, no ttp -will send ua, abd xray -will monitor and reassess -suspect still with colonic retention of stool but with stool passing around -pt is nontoxic in appearance -has appt with gi in 11/24/18 22:18 xray shows nsbgp with feces present in L side of colon will dc with miralax and keep outpt gi eval will give pmd referral 11/24/18 22:24 pt drinking water and ambulatory in the ED
[2018-11-24 22:54] VITALS: BP 110/75; PULSE 57; TEMP 98.7
== END 2018-11-25 00:10 | disposition home or self-care (01) ==
LOC: JER 18:36
DX: R10.9 Unspecified abdominal pain (principal)
CPT/HCPCS: 74019-TC-FY; 81003; 99281-25

== ENCOUNTER 2020-08-05 16:09 | Emergency (ER) | payer OTHER ==
[2020-08-05 16:23] VITALS: PULSE 86; BMI 21.7
[2020-08-05] MEDS ORDERED: SODIUM CHLORIDE 0.9% 500 ML INFUS.BAG IV ONE (17:08)
[2020-08-05] MEDS ORDERED: METOCLOPRAMIDE HCL INJECTION 10 MG/2 ML VIAL IVPUSH ONE (17:08)
[2020-08-05] MEDS ORDERED: KETOROLAC TROMETHAMINE 30 MG/1 ML VIAL IVPUSH ONE (17:08)
[2020-08-05] MEDS ORDERED: KETOROLAC TROMETHAMINE 30 MG/1 ML VIAL ONE (17:38)
[2020-08-05] MEDS ORDERED: METOCLOPRAMIDE HCL INJECTION 10 MG/2 ML VIAL ONE (17:38)
[2020-08-05 18:00] LABS: BASO % 0.7 % (0-2.0); EOS % 1.3 % (0-4.5); HEMATOCRIT 41.6 % (35.4-49); HEMOGLOBIN 14.3 GM/dL (11.7-16.9); LYMPH % 31.3 % (8-40); MCH 31.1 pg (25.7-33.7); MCHC 34.4 g/dl (32.0-35.9); MEAN CELL VOLUME 90.5 fl (80-96); MEAN PLT VOLUME 8.8 fl (7.5-11.1); MONO % 7.9 % (3.8-10.2); NEUT % 58.8 % (42.8-82.8); PLATELET COUNT 218 K/MM3 (134-434); WHITE BLOOD COUNT 6.5 K/mm3 (4.0-10.0)
[2020-08-05 18:00] LABS: PH,URINE 5.5 (5.0-8.0); URINE APPEARANCE CLEAR; URINE BILIRUBIN NEGATIVE (NEGATIVE); URINE COLOR YELLOW; URINE GLUCOSE (UA) NEGATIVE (NEGATIVE); URINE KETONE NEGATIVE (NEGATIVE); URINE LEUK ESTERASE NEGATIVE (NEGATIVE); URINE NITRITE NEGATIVE (NEGATIVE); URINE PROTEIN NEGATIVE (NEGATIVE); URINE UROBILINOGEN 0.2 mg/dL (0.2-1.0)
[2020-08-05 18:24] LABS: POTASSIUM 4.3 mmol/L (3.5-5.1)
[2020-08-05 18:26] LABS: CALCIUM 9.4 mg/dL (8.5-10.1)
[2020-08-05 18:27] LABS: ALBUMIN 4.4 g/dl (3.4-5.0); BLOOD UREA NITROGEN 12.1 mg/dL (7-18)
[2020-08-05 18:31] LABS: BILIRUBIN,TOTAL 0.7 mg/dL (0.2-1); TOT PROT 7.8 g/dl (6.4-8.2)
[2020-08-05 18:54] VITALS: BP 116/70; TEMP 97.9
== END 2020-08-05 19:26 | disposition home or self-care (01) ==
LOC: JER 16:09
PROC: 3E0333Z Introduction of Anti-inflammatory into Peripheral Vein, Percutaneous Approach (ICD-10-PCS; principal; 2020-08-05)
PROC: 3E033GC Introduction of Other Therapeutic Substance into Peripheral Vein, Percutaneous Approach (ICD-10-PCS; 2020-08-05)
DX: R51.9 Headache, unspecified (principal)
CPT/HCPCS: 36415; 80053; 81003; 85025; 87086; 87491; 87591; 99285-25

== ENCOUNTER 2020-12-12 21:39 | Emergency (ER) | payer OTHER ==
[2020-12-12 21:56] VITALS: BP 124/78; PULSE 81; TEMP 98.7; BMI 22.6
[2020-12-12] MEDS ORDERED: FAMOTIDINE 20 MG/50 ML IVPB 20 MG/50 ML MG IVPB ONE ×2 (23:13→23:45)
[2020-12-12] MEDS ORDERED: ACETAMINOPHEN 1000 MG/100 ML VIAL (NON FORMULARY) IVPB ONE (23:13)
[2020-12-12] MEDS ORDERED: SODIUM CHLORIDE 0.9% 1000 ML INFUS.BAG IV ONE (23:13)
[2020-12-12] MEDS ORDERED: MAG HYDROX/AL HYDROX/SIMETH -MYLANTA- ORAL SUSPENSION PO ONE (23:13)
[2020-12-12 23:44] LABS: BASO % 1.5 % (0-2.0); EOS % 3.4 % (0-4.5); HEMATOCRIT 40.9 % (35.4-49); HEMOGLOBIN 14.3 GM/dL (11.7-16.9); LYMPH % 43.4 % (8-40); MCH 31.8 pg (25.7-33.7); MEAN CELL VOLUME 90.8 fl (80-96); MEAN PLT VOLUME 8.8 fl (7.5-11.1); MONO % 8.1 % (3.8-10.2); NEUT % 43.6 % (42.8-82.8); PLATELET COUNT 239 10^3/uL (134-434); RDW 12.5 % (11.9-15.9); WHITE BLOOD COUNT 6.5 K/mm3 (4.0-10.0)
[2020-12-12] MEDS ORDERED: ACETAMINOPHEN INJECTION 100 ML IVPB ONE (23:44)
[2020-12-12] MEDS ORDERED: MAG HYDROX/AL HYDROX/SIMETH 30 ML UNIT-DOSE CUP ONE (23:44)
[2020-12-13 00:08] LABS: CHLORIDE 105 mmol/L (98-107); SODIUM 132 mmol/L (136-145)
[2020-12-13 00:12] LABS: ALBUMIN 3.9 g/dl (3.4-5.0); BLOOD UREA NITROGEN 12.9 mg/dL (7-18); CALCIUM 8.3 mg/dL (8.5-10.1); CO2 29 mmol/L (21-32); GLUCOSE,RANDOM 76 mg/dL (74-106); LIPASE 101 U/L (73-393)
[2020-12-13 00:15] LABS: CREATININE 1.1 mg/dL (0.55-1.3)
[2020-12-13 00:16] LABS: TOT PROT 8.5 g/dl (6.4-8.2)
[2020-12-13 00:17] LABS: BILIRUBIN,TOTAL 0.5 mg/dL (0.2-1)
[2020-12-13 00:18] LABS: ALK PHOS 74 U/L (45-117)
[2020-12-13 00:50] LABS: SGOT/AST 154 U/L (15-37); SGPT/ALT 50 U/L (13-61)
[2020-12-13 00:51] LABS: ANION GAP -2 MMOL/L (8-16)
[2020-12-13 01:34] LABS: BLOOD UREA NITROGEN 12.6 mg/dL (7-18)
[2020-12-13 01:37] LABS: CREATININE 0.9 mg/dL (0.55-1.3)
== END 2020-12-13 02:30 | disposition home or self-care (01) ==
LOC: JER 21:39
PROC: 3E033NZ Introduction of Analgesics, Hypnotics, Sedatives into Peripheral Vein, Percutaneous Approach (ICD-10-PCS; principal; 2020-12-12)
PROC: 3E033GC Introduction of Other Therapeutic Substance into Peripheral Vein, Percutaneous Approach (ICD-10-PCS; 2020-12-12)
DX: R10.13 Epigastric pain (principal)
CPT/HCPCS: 36415; 80048; 80053; 83690; 85025; 99285-25; J0131

== ENCOUNTER 2021-06-10 18:17 | Emergency (ER) | payer OTHER ==
[2021-06-10 20:00] VITALS: TEMP 98.1; BMI 23.3
[2021-06-10] MEDS ORDERED: PANTOPRAZOLE 40 MG TABLET PO ONE (20:23)
[2021-06-10] MEDS ORDERED: PANTOPRAZOLE 40 MG TABLET ONE (20:41)
[2021-06-10 21:49] LABS: BASO % 0.8 % (0-2.0); EOS % 3.4 % (0-4.5); HEMOGLOBIN 13.9 GM/dL (11.7-16.9); LYMPH % 48.7 % (8-40); MCH 30.3 pg (25.7-33.7); MCHC 33.8 g/dl (32.0-35.9); MEAN CELL VOLUME 89.7 fl (80-96); MEAN PLT VOLUME 9.1 fl (7.5-11.1); MONO % 8.6 % (3.8-10.2); NEUT % 38.5 % (42.8-82.8); PLATELET COUNT 216 10^3/uL (134-434); RBC 4.57 M/mm3 (4.00-5.60); RDW 12.2 % (11.9-15.9); WHITE BLOOD COUNT 6.4 K/mm3 (4.0-10.0)
[2021-06-10 22:05] LABS: CHLORIDE 106 mmol/L (98-107); SODIUM 140 mmol/L (136-145)
[2021-06-10 22:07] LABS: BLOOD UREA NITROGEN 13.9 mg/dL (7-18); CALCIUM 8.9 mg/dL (8.5-10.1)
[2021-06-10 22:08] LABS: ANION GAP 7 MMOL/L (8-16); CO2 28 mmol/L (21-32); GLUCOSE,RANDOM 85 mg/dL (74-106)
[2021-06-10 22:11] LABS: SGOT/AST 19 U/L (15-37); SGPT/ALT 21 U/L (13-61)
[2021-06-10 22:13] LABS: BILIRUBIN,TOTAL 0.4 mg/dL (0.2-1)
[2021-06-10 22:14] LABS: ALK PHOS 70 U/L (45-117)
[2021-06-11 01:00] VITALS: BP 129/76; PULSE 82
== END 2021-06-11 01:00 | disposition home or self-care (01) ==
LOC: JER 18:17
DX: K21.9 Gastro-esophageal reflux disease without esophagitis (principal); R10.10 Upper abdominal pain, unspecified
CPT/HCPCS: 36415; 71045-TC-FY; 80053; 84484; 85025; 93005; 93010; 99285-25